=== PATIENT | male | born 1945 | race Two or more races ===

== ENCOUNTER 2018-06-10 06:30 | Day surgery (SDC) | payer OTHER | END 2018-06-10 17:15 | disposition home or self-care (01) | LOC: CIR.AMB 06:30 → ADM 11:00 → CIR.AMB 11:00 | DX: K64.8 Other hemorrhoids (principal); K64.4 Residual hemorrhoidal skin tags ==

== ENCOUNTER 2025-01-05 07:00 | Day surgery (SDC) | payer OTHER ==
[2024-12-29 11:13] VITALS: BP 142/79
[~2025-01-05] VITALS: Ht 177.8 cm; Wt 76.2 kg
[~2025-01-05 07:00] MED LIST: ATACAND HCT 321 EAC1 PO; DILTIAZEM ER180 M3 PO; DOXAZOSIN MESYLA2 MG PO; LEVO-T25 MCG PO; METFORMIN HCL500 M3 PO; PEPCID AC20 MG PO; PLAVIX75 MG PO; ROSUVASTATIN CA10 MG PO; TOPROL XL100 M1 PO; XARELTO20 MG PO
[2025-01-05] MEDS ORDERED: CEFTRIAXONE SODIUM 2,000 MG VIAL ONE (08:32)
[2025-01-05] MEDS ORDERED: METRONIDAZOLE/SODIUM CHLORIDE 500 MG/100 ML PIGGYBACK IV ONE (08:32)
[2025-01-05] MEDS ORDERED: HEMOSTATIC MATRIX 1 KIT KIT TOP ONE (11:37)
[2025-01-05] MEDS ORDERED: BUPIVACAINE HCL/MPF 0.5% 30ML VIAL ONE (11:37)
[2025-01-05] MEDS ORDERED: DIBUCAINE 30 GM TUBE ONE (11:37)
[2025-01-05] MEDS ORDERED: POVIDONE-IODINE 118 ML BOTT TOP ONE (11:37)
[2025-01-05] MEDS ORDERED: LIDOCAINE HCL 1%/EPINEPHRINE 20ML VIAL IJ ONE (11:37)
== END 2025-01-05 16:15 | disposition home or self-care (01) ==
LOC: CIR.AMB 07:00
PROVIDERS: ATTEND Colon & Rectal Surgery
DX: K64.2 Third degree hemorrhoids (principal); K64.4 Residual hemorrhoidal skin tags